=== PATIENT | male | born 1985 | race Caucasian/White ===

== ENCOUNTER 2019-04-22 12:52 | Emergency (ER) | payer OTHER ==
[~2019-04-22] VITALS: Ht 180.3 cm; Wt 73.9 kg
[2019-04-22 13:01] VITALS: BP 110/56
--- NOTE | 2019-04-22 13:04 | NUR ---
PT SENT TO ER LOBBY TO WAIT FOR AVAILABLE BED.
--- NOTE | 2019-04-22 13:39 | NUR ---
PT AMBUALTED TO BED 2.
--- NOTE | 2019-04-22 13:46 | NUR ---
34/M presents to ED c/o blood in stool last night after having a bowel movement. I asked patient if blood was bright red or coffee ground in appearnce and he replied "It was red." Pt states this am he was volunteering at a [employer] and had another bowel movement with blood this am. Pt denies any hemorrhoids. Pt c/o discomfort around rectum. Pt denies any medical problems. Skin warm and dry, normal in color for ethnicity.
[2019-04-22 14:45] VITALS: BP 115/65
--- NOTE | 2019-04-22 14:45 | NUR ---
Patient discharged with v/s stable. Written and verbal after care instructions given and explained. Patient verbalized understanding. Ambulatory with steady gait. All questions addressed prior to discharge. Advised to follow up with PMD.
== END 2019-04-22 14:45 | disposition home or self-care (01) ==
LOC: MED 12:52
DX: K62.5 Hemorrhage of anus and rectum (principal); K60.2 Anal fissure, unspecified
CPT/HCPCS: 99281